=== PATIENT | female | born 2000 | race Caucasian/White ===

== ENCOUNTER 2022-11-11 18:23 | Emergency (ER) | payer OTHER, SELFPAY ==
[2022-11-11 18:47] VITALS: BP 131/87; PULSE 124; RESP 16; TEMP 37.5; O2SAT 100
--- NOTE | 2022-11-11 19:38 | ED.GENADULT ---
HPI - General Adult General Chief complaint: Ear Stated complaint: Ear Pain/Fever Source: patient Mode of arrival: ambulatory Limitations: no limitations History of Present Illness HPI narrative: Patient presents for evaluation of sick symptoms for last 2 days. Symptoms include sore throat, runny nose, left-sided ear pain, fever and mild SOB. No chills, nausea, vomiting, diarrhea or significant cough. No recent sick contacts. She does use an electric cigarette and smokes marijuana. She has had COVID in the past. Related Data Allergies Allergy/AdvReac Type Severity Reaction Status Date / Time No Known Allergies Allergy Unknown Unverified 11/11/22 18:56 Review of Systems Review of Systems: CONSTITUTIONAL: Reports fever. Denies chills. EYES: Denies visual changes, redness, or discharge. ENT: Reports rhinorrhea, sore throat, left-sided otalgia.. CARDIOVASCULAR: Denies chest pain, palpitations, or edema. RESPIRATORY: Denies cough or dyspnea. GASTROINTESTINAL: Denies abdominal pain, nausea, vomiting, or diarrhea. GENITOURINARY: Denies dysuria or hematuria. SKIN: Denies rash or itching. MUSCULOSKELETAL: Denies back pain, joint pain, or myalgia. NEUROLOGIC: Denies headache, numbness, dizziness, or weakness. PSYCHIATRIC: Denies anxiety or depression. PMFSH Past Medical History Medical History (Updated 11/11/22 @ 19:52 by Alvarado Worrell, [employer], ) No pertinent past medical history Surgical History Surgical History No pertinent past surgical history Family History Family History Mother Family history non-contributory Social History Social History (Updated 11/11/22 @ 19:43 by Alvarado Worrell, [facility], ) Smoking status: Current every day smoker Tobacco type: e-cigarettes/vaping Alcohol intake: current Alcohol use details: social Substance use: current Substance use type: marijuana Additional living arrangements comments: Lives with boyfriend Gender identity (if verbalized by the patient): Female Sexual Orientation (if Verbalized by the Patient): Straight or Heterosexual Spiritual care concerns: No Exam Narrative: GENERAL: Well-appearing, well-nourished, and in no acute distress. HEAD: Normocephalic, atraumatic. EYES: PERRLA and EOMI. ENT: Nares clear, no rhinorrhea or epistaxis. Mucous membranes moist. Posterior pharyngeal erythema without exudate. Uvula is midline. Left TM erythema and bulging NECK: Supple. No adenopathy or masses. No carotid bruits or JVD CHEST: Clear to auscultation. No respiratory distress. No wheezes rales or rhonchi HEART: Regular rate and rhythm. No murmur heard. Normal peripheral pulses. ABDOMEN: Soft, nontender, nondistended, normal active bowel sounds. EXTREMITIES: Normal range of motion. No edema. SKIN: Warm, dry, no rash. NEURO: No focal deficits. Alert and oriented x3. PSYCH: Normal mood and affect. Course Course Emergency Course: This is a 22-year-old female who presented for evaluation of sick symptoms. She has evidence of otitis media on exam. Will treat with Augmentin. Her strep and flu were negative here. Increase hydration. [id number] agents for symptom management. Follow up with primary provider. Go to the ER for worsening symptoms. Advised not to smoke. Patient in agreement with plan of care. Level of Care: Express Care Visit Vital Signs Vital signs: Vital Signs Temperature 37.5 C 11/11/22 18:47 Pulse Rate 124 H 11/11/22 18:47 Respiratory Rate 16 11/11/22 18:47 Blood Pressure 131/87 11/11/22 18:47 Pulse Oximetry 100 11/11/22 18:47 Oxygen Delivery Room Air 11/11/22 18:47 Temperature 37.5 C 11/11/22 18:47 Pulse Rate 124 H 11/11/22 18:47 Respiratory Rate 16 11/11/22 18:47 Blood Pressure 131/87 11/11/22 18:47 Pulse Oximetry 100 11/11/22 18:47 Oxygen Delivery Room
== END 2022-11-11 19:56 | disposition home or self-care (01) ==
PROVIDERS: Emergency Provider Nurse Practitioner
DX: H66.92 Otitis media, unspecified, left ear (principal); F17.290 Nicotine dependence, other tobacco product, uncomplicated
CPT/HCPCS: 87081; 87804; 87880; 99203; G0463

== ENCOUNTER 2023-02-23 17:57 | Emergency (ER) | payer OTHER, SELFPAY ==
--- NOTE | ~2023-02-23 | XR_ITS ---
EXAMINATION: XR hand RT min 3V DATE: 02/23/2023 18:19 INDICATION: Right hand pain and swelling TECHNIQUE: Posteroanterior, oblique and lateral views of the right hand were obtained. COMPARISON: None. FINDINGS: Boxer's fracture with old fracture at the distal diaphysis of the right fifth metacarpal. There is 3 mm palmar/radial and 20 degrees palmar/radial angulation. Prominent soft tissue swelling about the ul sabino side of the hand. No other fractures identified. Alignment is otherwise normal. Joint spaces are normal. IMPRESSION: 1. Moderately displaced and angulated boxer's fracture the distal diaphysis of the right fifth metaca rpal. Reviewed, dictated and finalized at location A. IMPRESSION: 1. Moderately displaced and angulated boxer's fracture the distal diaphysis of the right fifth metacarpal.
[2023-02-23 18:04] VITALS: BP 134/77; PULSE 72; RESP 16; TEMP 37.3; O2SAT 100
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
== END 2023-02-23 19:00 | disposition home or self-care (01) ==
PROVIDERS: Emergency Provider Nurse Practitioner Family
DX: S62.306A Unspecified fracture of fifth metacarpal bone, right hand, initial encounter for closed fracture (principal); W22.8XXA Striking against or struck by other objects, initial encounter; F17.290 Nicotine dependence, other tobacco product, uncomplicated
CPT/HCPCS: 29125; 73130; 99214; A4565; G0463

== ENCOUNTER 2023-02-26 02:09 | Day surgery (SDC) | payer OTHER, SELFPAY ==
[2023-02-24 15:27] VITALS: BMI 19.8
--- NOTE | 2023-02-24 15:31 | PC.NURSE ---
Report to the Outpatient Waiting Room, entrance under the green pavilion located off [facility], at time 0915 on date 02/26/23. Planned Procedure Time: 1115. Time changes happen often and if your time is changed the preop area will call you the afternoon before. - You and your visitor will be asked to self-screen and do not enter if you have any COVID symptoms. - A mask is optional within the hospital at this time. Patients may have clear liquids (water, carbonated beverages, clear teas, apple juice) until 3 hours prior to surgery with a maximum of 20 ounces. - No food from midnight until time of surgery Take the following medications with a SIP of water the morning of surgery: N/A DO NOT STOP ANY OF YOUR OTHER PRESCRIPTION MEDICATIONS PRIOR TO SURGERY EXCEPT THE FOLLOWING Medications to discontinue per physician: N/A Date to take last dose: N/A Please no make-up, nail wolof, hairspray, perfume, deodorant, or body powder the day of surgery. No jewelry (including any body piercings) or valuables the day of surgery, leave them at home. Please take a shower or bath the night before, or the morning of, surgery with an antibacterial soap. Wear comfortable, loose fitting clothing. - Jewelry must be removed prior to entering the operating room. Rings and piercings that are not removed may be cut off. - The hospital will not accept responsibility for valuables. - Please leave all valuables, including medications, at home the day of surgery. If you are going home after surgery, a licensed medical van driver must drive you home. - NO public transportation without another adult if you receive anesthesia. - We recommend that an adult stay with you for 24 hours following discharge. - We also recommend that you do not drive, make important decision, drink alcoholic beverages, or take any drugs that were not prescribed by your health care provider for at least 24 hours after your discharge time. Follow any additional instructions given to you from your surgeon. If you or anyone in your household have experienced Covid symptoms in the past week, please notify your surgeon or the nurse liaison at the phone number below for possible testing. Telephone instructions given to SAMUEL MILLER and asked if any additional questions and then verbalized understanding. Patient advised to call surgeon office or pre surgery nurse liaison [phone] if any additional questions.
[2023-02-26] VITALS (8 sets, daily range): BP systolic 110–123; BP diastolic 65–90; PULSE 56–121; RESP 12–21; TEMP 36.6; O2SAT 100
--- NOTE | ~2023-02-26 | XR_ITS ---
. EXAMINATION: XR surgery orthopedic DATE: 02/26/2023 11:09 INDICATION: Right fifth metacarpal fracture. TECHNIQUE: 3 intraoperative spot fluoroscopic views of right hand were obtained. I was not present. F luoroscopy exposure time was 130 seconds. COMPARISON: Right hand radiographs 02/23/2023 FINDINGS: There is an oblique fracture of diaphysis of fifth metacarpal in near-anatomic alignment st atus post internal fixation with an intramedullary pin. IMPRESSION: 1. Oblique fracture of diaphysis of fifth metacarpal in near-anatomic alignment status post internal fixation. Reviewed, dictated and finalized at location A.
--- NOTE | 2023-02-26 07:10 | WPDHPUPDATE1 ---
History and Physical Update Update Date/Time: 02/26/23 07:10 History and Physical has been reviewed, including an updated exam of the patient. There are NO changes in the patient's condition. Risks, benefits, and alternatives have been discussed and questions answered. Patient agrees to proceed with procedure.
[2023-02-26] MEDS: ACETAMINOPHEN 500 MG TABLET 1000 MG PO (09:55)
--- NOTE | 2023-02-26 09:57 | WPDANESEPPF ---
Anes - Initial Pre Proc Eval Procedure: Operation Date: 02/26/23 11:15 Proposed Procedures p Closed Possible Open Reduction Internal Fixation of Right Fifth Metacarpal Fracture - Angelo Tesfaye MD Date/Time: 02/26/23 09:57 Surgeon: Angelo Tesfaye MD Pre Op Diagnosis: right 5th metacarpal fracture Patient Data Age: 22 Gender: F Height: 1.55 m Weight: 47.65 kg Allergies Allergy/AdvReac Type Severity Reaction Status Date / Time No Known Allergies Allergy Unknown Unverified 02/24/23 15:27 Home Medications Medication Instructions Recorded Confirmed Type No Home Medications 02/24/23 02/24/23 History Patient hx anesthesia problems: none Family hx anesthesia problems: none Results Review: All pre-operative results and documents have been reviewed as part of the pre-operative evaluation. [facility] Past Medical History Medical History (Updated 02/24/23 @ 00:00 by Bee Corbett) No pertinent past medical history Surgical History Surgical History No pertinent past surgical history Family History Family History Mother Family history non-contributory Social History Social History (Updated 11/11/22 @ 19:43 by GRADY NorrisP, ) Smoking status: Never smoker Tobacco type: e-cigarettes/vaping Alcohol intake: current Drinks per week: 3 Alcohol use details: social Substance use: current Substance use type: marijuana Living arrangements: with friend(s) Additional living arrangements comments: BOYFRIEND Gender identity (if verbalized by the patient): Female Sexual Orientation (if Verbalized by the Patient): Straight or Heterosexual Spiritual care concerns: No Anes - Eval Final PreProcedure Day of Procedure 02/26/23 09:57 Patient weight: normal Heart: regular rate and rhythm Lungs: clear to auscultation Airway: Mallampati scale class II Neurological: alert and oriented Last oral intake: >/= 8 hours ASA classification: II Emergent: no Anesthetic plan: proceed Anesthesia type and monitoring: general LMA and standard monitoring Results Review: All pre-operative results and documents have been reviewed as part of the pre-operative evaluation. Informed Consent: The patient's anesthetic plan and its attendant risks and benefits were discussed with the patient/family/POA. Questions were solicited and answers provided to the satisfaction of the patient/family/POA.
[2023-02-26] MEDS: LACTATED RINGERS 1,000 ML 30 ML IV CONT (10:02)
--- NOTE | 2023-02-26 10:04 | P.PNAN_ITS ---
Anes - Initial Pre Proc Eval Procedure: Operation Date: 02/26/23 11:15 Proposed Procedures p Closed Possible Open Reduction Internal Fixation of Right Fifth Metacarpal Fracture - Angelo Tesfaye MD Date/Time: 02/26/23 10:04 Surgeon: Angelo Tesfaye MD Pre Op Diagnosis: right 5th metacarpal fracture Patient Data Age: 22 Gender: F Height: 1.55 m Weight: 46.9 kg Last Vital Signs Temp 98 F 02/26/23 09:58 Pulse 74 02/26/23 09:58 Resp 14 02/26/23 09:58 BP 111/90 02/26/23 09:58 Pulse Ox 100 02/26/23 09:58 O2 Del Method Room Air 02/26/23 09:58 Allergies Allergy/AdvReac Type Severity Reaction Status Date / Time No Known Allergies Allergy Unknown Verified 02/26/23 10:03 Home Medications Medication Instructions Recorded Confirmed Type No Home Medications 02/24/23 02/24/23 History Patient hx anesthesia problems: none Family hx anesthesia problems: none Results Review: All pre-operative results and documents have been reviewed as part of the pre- operative evaluation. [facility] Past Medical History Medical History (Updated 02/24/23 @ 00:00 by Bee Corbett) No pertinent past medical history Surgical History Surgical History No pertinent past surgical history Family History Family History Mother Family history non-contributory Social History Social History (Updated 11/11/22 @ 19:43 by FELY Norris, ) Smoking status: Never smoker Tobacco type: e-cigarettes/vaping Alcohol intake: current Drinks per week: 3 Alcohol use details: social Substance use: current Substance use type: marijuana Living arrangements: with friend(s) Additional living arrangements comments: BOYFRIEND Gender identity (if verbalized by the patient): Female Sexual Orientation (if Verbalized by the Patient): Straight or Heterosexual Spiritual care concerns: No Anes - Eval Final PreProcedure Day of Procedure 02/26/23 10:04 Patient weight: normal Heart: regular rate and rhythm Lungs: clear to auscultation Airway: Mallampati scale class II Neurological: alert and oriented Last oral intake: >/= 8 hours ASA classification: II Emergent: no Anesthetic plan: proceed Anesthesia type and monitoring: general LMA and standard monitoring Results Review: All pre-operative results and documents have been reviewed as part of the pre- operative evaluation. Informed Consent: The patient's anesthetic plan and its attendant risks and benefits were discussed with the patient/family/POA. Questions were solicited and answers provided to the satisfaction of the patient/family/POA.
[2023-02-26] MEDS: ceFAZolin 2 GM/D5W 50 ML 2 GM/50 ML BAG IVPB (10:05)
[2023-02-26] MEDS: LIDO 1%/EPINEPHRINE 1:100,000 50 ML VIAL INFILTRATE (10:32)
--- NOTE | 2023-02-26 11:23 | W.PM.PROC2 ---
Procedure Note - Detailed Date of Procedure 02/26/23 Pre-op Diagnosis right 5th metacarpal fracture Post-op Diagnosis Same Procedure Performed Open reduction and internal fixation of displaced right 5th metacarpal shaft fracture with intramedullary C-wire Surgeon Angelo Tesfaye MD [employer] [place] Anesthesia General Indications Angulated offset and rotated shaft fracture Description of Procedure The fracture area was marked on the patient's hand in preop with her consent. She was then taken to the operating room where she was placed supine on the operating table. She was given general anesthesia. Extremity is prepped and draped in the usual fashion. The site for access and pin placement was identified with the C-arm. The area was locally infiltrated with 1% lidocaine with epinephrine. A 1.5 cm incision was made. The periosteum was stripped away with a small area near the base of the 5th metacarpal. A 0.062 in C-wire was used to make the fenestration in the bone dorsal cortex. A custom bent 0.045 in C-wire was inserted from that point and advanced distally using the right and left rotation of the pin drill. The fracture was fairly easily reduced. Rotation was examined at the finger tips. The pin was advanced further into the head of the 5th metacarpal. Reviewing several images we felt that satisfactory reduction and fixation was achieved. The pin was sharply bent at the base of the metacarpal and rotated against the bone. A 3-0 Vicryl suture was passed through abductor fascia and around the bent pin to keep it from rotating. The site was irrigated and the skin closed with a running 5 0 nylon. A soft bandage with Coban wrap was applied. She is discharged home with instructions in wound care and follow-up. She has a prescription for hydrocodone 5/325 be used every 4-6 hours as needed for pain 7.. She was given IV Ancef preop Estimated Blood Loss 2 Drains No Packing No Pathology None sent Complications No immediate complications Condition Stable Disposition PACU
[2023-02-26] MEDS: fentaNYL CITRATE INJ (*CRX) 100 MCG/2 ML VIAL 25 MCG IV PUSH ×3 (11:37→12:01)
== END 2023-02-26 12:53 | disposition home or self-care (01) ==
PROVIDERS: Visit Provider Plastic Surgery
PROC: (CPT 26615; principal; 2023-02-26 11:15)
DX: S62.326A Displaced fracture of shaft of fifth metacarpal bone, right hand, initial encounter for closed fracture (principal); T14.90XA Injury, unspecified, initial encounter
CPT/HCPCS: 26615; 99199; A9270; C1713; J0690; J1100; J2250; J2405; J2704; J3010; J7120

== ENCOUNTER 2023-04-15 06:35 | Day surgery (SDC) | payer OTHER, SELFPAY ==
--- NOTE | 2023-04-07 09:11 | PC.NURSE ---
Report to the Outpatient Waiting Room, entrance under the green pavilion located off [facility], at time _0630_ on date _04/15/23. Planned Procedure Time: __0830_. Time changes happen often and if your time is changed the preop area will call you the afternoon before. - You and your visitor will be asked to self-screen and do not enter if you have any COVID symptoms. - A mask is optional within the hospital at this time. Patients may have clear liquids (water, carbonated beverages, clear teas, apple juice) until 3 hours prior to surgery with a maximum of 20 ounces. - No food from midnight until time of surgery - Infants may have breast milk until 4 hours before surgery, infant formula 6 hours prior to surgery. - Children will be allowed to drink immediately following surgery. If applicable, please bring a bottle or sippy cup to assist with drinking. Juice, water, soda, and popsicles are readily available. For infants on formula, please bring formula the day of surgery. Pacifiers are allowed. Take the following medications with a SIP of water the morning of surgery: NONE DO NOT STOP ANY OF YOUR OTHER PRESCRIPTION MEDICATIONS PRIOR TO SURGERY ?EXCEPT THE FOLLOWING Medications to discontinue per physician NONE Date to take last dose Please no make-up, nail lao, hairspray, perfume, deodorant, or body powder the day of surgery. No jewelry (including any body piercings) or valuables the day of surgery, leave them at home. Please take a shower or bath the night before, or the morning of, surgery with an antibacterial soap. Wear comfortable, loose fitting clothing. Children are encouraged to wear pajamas. - Jewelry must be removed prior to entering the operating room. Rings and piercings that are not removed may be cut off. - The hospital will not accept responsibility for valuables. - Please leave all valuables, including medications, at home the day of surgery. If you are going home after surgery, a licensed parts delivery driver must drive you home. - NO public transportation without another adult if you receive anesthesia. - We recommend that an adult stay with you for 24 hours following discharge. - We also recommend that you do not drive, make important decision, drink alcoholic beverages, or take any drugs that were not prescribed by your health care provider for at least 24 hours after your discharge time. For Pediatric surgeries, we recommend two adults accompany the child home. Follow any additional instructions given to you from your surgeon. If you or anyone in your household have experienced Covid symptoms in the past week, please notify your surgeon or the nurse liaison at the phone number below for possible testing. Telephone instructions given to _PATIENT and asked if any additional questions and then verbalized understanding. Patient advised to call surgeon office or pre surgery nurse liaison [phone] if any additional questions.
--- NOTE | 2023-04-13 13:33 | WPDANESEPPF ---
Anes - Initial Pre Proc Eval Procedure: Operation Date: 04/15/23 08:30 Proposed Procedures p Removal C-Wire from Right Fifth Metacarpal - Angelo Tesfaye MD Date/Time: 04/13/23 13:33 Surgeon: Angelo Tesfaye MD Pre Op Diagnosis: R 5th metacapal fx sp orig Patient Data Age: 22 Gender: F Height: 1.55 m Weight: 48 kg Allergies Allergy/AdvReac Type Severity Reaction Status Date / Time No Known Allergies Allergy Unknown Verified 04/07/23 09:06 Home Medications Medication Instructions Recorded Confirmed Type No Home Medications 04/07/23 04/07/23 History Results Review: All pre-operative results and documents have been reviewed as part of the pre-operative evaluation. [facility] Past Medical History Medical History (Updated 02/24/23 @ 00:00 by Bee Corbett) No pertinent past medical history Surgical History Surgical History No pertinent past surgical history Family History Family History Mother Family history non-contributory Social History Social History (Updated 11/11/22 @ 19:43 by FELY Norris, ) Smoking status: Never smoker Tobacco type: e-cigarettes/vaping Additional smoking assessment comments: 2 YEARS Alcohol intake: current Drinks per week: 2 Alcohol use details: social Substance use: current Substance use type: marijuana Other substance usage details: DAILY Living arrangements: with roommate(s) Additional living arrangements comments: BOYFRIEND Gender identity (if verbalized by the patient): Female Sexual Orientation (if Verbalized by the Patient): Straight or Heterosexual Spiritual care concerns: No Anes - Eval Final PreProcedure Day of Procedure 04/13/23 13:33 Patient weight: normal Heart: regular rate and rhythm Lungs: clear to auscultation Airway: Mallampati scale class II Neurological: alert and oriented Last oral intake: >/= 8 hours ASA classification: II Emergent: no Anesthetic plan: proceed Anesthesia type and monitoring: general LMA and standard monitoring Results Review: All pre-operative results and documents have been reviewed as part of the pre-operative evaluation. Informed Consent: The patient's anesthetic plan and its attendant risks and benefits were discussed with the patient/family/POA. Questions were solicited and answers provided to the satisfaction of the patient/family/POA.
--- NOTE | ~2023-04-15 | XR_ITS ---
EXAMINATION: XR surgery orthopedic DATE: 04/15/2023 08:34 INDICATION: C-wire fixation removal from the right fifth metacarpal TECHNIQUE: A single dorsal palmar fluoroscopic image of the right fifth metacarpal was obtained krystle ralph procedure performed by Dr. Tesfaye. Radiologist was not present for the imaging or procedure. The [place] unt of fluoroscopy time used during this procedure was 0.1 minutes. COMPARISON: 02/26/2023 FINDINGS: Again seen is a fixation wire extending from proximal to distal through the fifth metacarpal spanning a healing nondisplaced distal metadiaphyseal fracture. Bridging callus formation is seen about both sides of the fracture. There is still some discernible lucency along the fracture plane. Normal joint space at the fifth metacarpophalangeal joint. IMPRESSION: 1. Wire fixation of a healing fifth metacarpal fracture which remains in near-anatomic alignment. Reviewed, dictated and finalized at location B. IMPRESSION: 1. Wire fixation of a healing fifth metacarpal fracture which remains in near-a natomic alignment.
[2023-04-15 06:49] VITALS: BP 121/78; PULSE 64; RESP 16; TEMP 36.6; O2SAT 100
[2023-04-15] MEDS: ACETAMINOPHEN 500 MG TABLET 1000 MG PO (07:11)
--- NOTE | 2023-04-15 07:14 | WPDHPUPDATE1 ---
History and Physical Update Update Date/Time: 04/15/23 07:14 History and Physical has been reviewed, including an updated exam of the patient. There are NO changes in the patient's condition. Risks, benefits, and alternatives have been discussed and questions answered. Patient agrees to proceed with procedure.
[2023-04-15] MEDS: LACTATED RINGERS 1,000 ML 30 ML IV CONT (07:18)
--- NOTE | 2023-04-15 07:57 | WPDANESEPPF ---
Anes - Initial Pre Proc Eval Procedure: Operation Date: 04/15/23 08:30 Proposed Procedures p Removal C-Wire from Right Fifth Metacarpal - Angelo Tesfaye MD Date/Time: 04/15/23 07:57 Surgeon: Angelo Tesfaye MD Pre Op Diagnosis: R 5th metacapal fx sp orig Patient Data Age: 22 Gender: F Height: 1.55 m Weight: 47.5 kg Last Vital Signs Temp 36.6 C 04/15/23 06:49 Pulse 64 04/15/23 06:49 Resp 16 04/15/23 06:49 BP 121/78 04/15/23 06:49 Pulse Ox 100 04/15/23 06:49 O2 Del Method Room Air 04/15/23 06:49 Allergies Allergy/AdvReac Type Severity Reaction Status Date / Time No Known Allergies Allergy Unknown Verified 04/15/23 07:08 Home Medications Medication Instructions Recorded Confirmed Type No Home Medications 04/07/23 04/15/23 History Patient hx anesthesia problems: none Family hx anesthesia problems: none Results Review: All pre-operative results and documents have been reviewed as part of the pre-operative evaluation. [facility] Past Medical History Medical History (Updated 02/24/23 @ 00:00 by Bee Corbett) No pertinent past medical history Surgical History Surgical History No pertinent past surgical history Family History Family History Mother Family history non-contributory Social History Social History (Updated 11/11/22 @ 19:43 by FELY Norris, ) Smoking status: Never smoker Tobacco type: e-cigarettes/vaping Additional smoking assessment comments: 2 YEARS Alcohol intake: current Drinks per week: 2 Alcohol use details: social Substance use: current Substance use type: marijuana Other substance usage details: DAILY Living arrangements: with roommate(s) Additional living arrangements comments: BOYFRIEND Gender identity (if verbalized by the patient): Female Sexual Orientation (if Verbalized by the Patient): Straight or Heterosexual Spiritual care concerns: No Anes - Eval Final PreProcedure Day of Procedure 04/15/23 07:57 Patient weight: normal Heart: regular rate and rhythm Lungs: clear to auscultation and normal air movement Airway: Mallampati scale class II Neurological: alert and oriented Last oral intake: >/= 8 hours ASA classification: II Emergent: no Anesthetic plan: proceed Anesthesia type and monitoring: general GIVS and standard monitoring Results Review: All pre-operative results and documents have been reviewed as part of the pre-operative evaluation. Informed Consent: The patient's anesthetic plan and its attendant risks and benefits were discussed with the patient/family/POA. Questions were solicited and answers provided to the satisfaction of the patient/family/POA.
[2023-04-15] MEDS: LIDO 1%/EPINEPHRINE 1:100,000 50 ML VIAL INFILTRATE (08:34)
[2023-04-15 08:45] VITALS: BP 100/80; PULSE 48; RESP 14; O2SAT 98
--- NOTE | 2023-04-15 09:02 | W.PM.PROC2 ---
Procedure Note - Detailed Date of Procedure 04/15/23 Pre-op Diagnosis R 5th metacapal fx sp orig Post-op Diagnosis Other (Status post closed reduction and internal fixation of right 5th metacarpal fracture) Procedure Performed Removal of C-wire fixation device from the right 5th metacarpal Surgeon Angelo Tesfaye MD Anesthesia MAC Description of Procedure The previously operated pin site was marked on the patient's hand with her consent in the holding area. She was taken to the operating room where she was placed supine on the operating table. The extremity was prepped and draped in usual fashion. She was given IV sedation. Time-out was held and confirmed. The site was locally infiltrated with 1% lidocaine with epinephrine. C-arm images confirmed appropriate access site. The fracture was noted to be healing. The tourniquet was inflated to 250 mmHg. The incision was made to include excision of the existing scar. Sharp and blunt dissection revealed the proximal end of the pin. The extensor tendon to the 5th finger were identified and released from local scarring. The pin was removed retrograde with the use of a large needle mata. The digit was noted to move freely with passive motion. The wound was closed with intradermal 4-0 Vicryl suture heart and glue. A small bandage was applied the tourniquet was released. She is discharged with instructions in wound care and follow-up and has a prescription for hydrocodone 5/325 number 3. Estimated Blood Loss 0 Drains No Packing No Pathology None sent Complications No immediate complications Condition Stable Disposition Same day
[2023-04-15 09:15] VITALS: BP 107/66; PULSE 54; RESP 16; O2SAT 100
[2023-04-15 09:45] VITALS: BP 113/74; PULSE 52; RESP 16
== END 2023-04-15 10:17 | disposition home or self-care (01) ==
PROVIDERS: Visit Provider Plastic Surgery
PROC: (CPT 20694; principal; 2023-04-15 08:30)
DX: Z47.2 Encounter for removal of internal fixation device (principal); S62.326D Displaced fracture of shaft of fifth metacarpal bone, right hand, subsequent encounter for fracture with routine healing; W22.8XXD Striking against or struck by other objects, subsequent encounter; F12.90 Cannabis use, unspecified, uncomplicated; F17.290 Nicotine dependence, other tobacco product, uncomplicated
CPT/HCPCS: 20680; 99199; A9270; J2250; J2405; J2704; J3010; J7120

== ENCOUNTER 2023-06-14 16:02 | Emergency (ER) | payer OTHER, SELFPAY ==
[2023-06-14 16:07] VITALS: BP 127/84; PULSE 101; RESP 18; TEMP 37.2; O2SAT 100
--- NOTE | 2023-06-14 16:18 | ED.URI ---
HPI - URI/Sore Throat General Chief Complaint: Upper Respiratory Infection Stated Complaint: Shortness of Breath/Fever History of Present Illness HPI Narrative: patient presents with chest congestion , cough, nasal congestion. an runny nose no shortness of breath and no chest pain no fever. negative covid test at home yesterday states her symptoms started 2 days ago Related Data Home Medications Medication Instructions Recorded Confirmed norethindrone 1 mg-ethinyl 1 tablet PO DAILY 06/14/23 06/14/23 estradiol 10 mcg (24)-iron 10 mcg(2) tablet (Lo Loestrin Fe) Allergies Allergy/AdvReac Type Severity Reaction Status Date / Time No Known Allergies Allergy Unknown Verified 04/15/23 07:08 Review of Systems Review of Systems: CONSTITUTIONAL: Denies chills, or sweats. Reports fever and generalized body aches EYES: Denies visual changes, redness, or discharge. ENT: Denies otalgia. Reports nasal congestion runny nose and sore throat CARDIOVASCULAR: Denies chest pain, palpitations, or edema. RESPIRATORY: Denies dyspnea. Reports occasional cough GASTROINTESTINAL: Denies abdominal pain, nausea, vomiting, or diarrhea. GENITOURINARY: Denies dysuria or hematuria. SKIN: Denies rash or itching. MUSCULOSKELETAL: Denies back pain, joint pain, or myalgia. Reports generalized body aches NEUROLOGIC: Denies headache, numbness, or weakness. PSYCHIATRIC: Denies anxiety or depression. [facility] Past Medical History Medical History (Updated 06/14/23 @ 16:24 by FELY Leal) No pertinent past medical history Surgical History Surgical History No pertinent past surgical history Family History Family History Mother Family history non-contributory Social History Social History (Updated 11/11/22 @ 19:43 by FELY Norris, ) Smoking status: Never smoker Tobacco type: e-cigarettes/vaping Additional smoking assessment comments: 2 YEARS Alcohol intake: current Drinks per week: 2 Alcohol use details: social Substance use: current Substance use type: marijuana Other substance usage details: DAILY Living arrangements: with roommate(s) Additional living arrangements comments: BOYFRIEND Gender identity (if verbalized by the patient): Female Sexual Orientation (if Verbalized by the Patient): Straight or Heterosexual Spiritual care concerns: No Comments At time of signature, agree with nursing past medical, surgical, social and family history. There is no relevant family history pertinent to the presenting complaint Exam Narrative: The patient is a well-developed, well-nourished in no acute distress. SKIN: Skin is warm and dry without erythema, swelling or exudate. There is good turgor. No tenting. HEAD: Atraumatic. Normocephalic. No temporal or scalp tenderness. EYES: Moist and bright. Sclera and conjunctivae normal. No discharge. PERRLA. Extraocular motions intact. Gross visual acuity intact. EARS: Pinna is normal shape and contour. Clear external auditory canals. TM pearly pina with good cone of light, no erythema or suppuration. Bilateral cerumen noted no gross hearing deficit. NOSE: pink, moist mucosa with good air movement. Clear rhinorrhea without nasal flaring. Septum midline. Mouth: moist mucous membranes. THROAT; mild erythema noted to posterior oropharynx with moderate postnasal drainage. Without exudate or ulceration.. Uvula midline. Normal movement of soft palate. NECK: Supple and nontender with full range of motion without discomfort. No meningeal signs. LUNGS: Equal and bilateral breath sounds without wheezes, rales or rhonchi. CHEST: The chest wall is without retractions or use of accessory muscles. HEART: Has a regular rate and rhythm without murmur, gallops, click or rub. ABDOMEN: Soft, nontender with positive active bowel sounds. No reboun
== END 2023-06-14 16:50 | disposition home or self-care (01) ==
PROVIDERS: Emergency Provider Nurse Practitioner Family
DX: J06.9 Acute upper respiratory infection, unspecified (principal); Z20.822 Contact with and (suspected) exposure to COVID-19
CPT/HCPCS: 87426; 99213; C9803; G0463

== ENCOUNTER 2025-08-12 14:27 | Emergency (ER) | payer OTHER, SELFPAY ==
--- OUTSIDE RECORDS SUMMARY | 2025-08-12 14:29 | XMS_ITS | Clinical Summary ---
Author Organization [facility] Address [address] [address] Phone Care Team Providers Care Heel Wheeler Name Role Phone Unavailable Primary Care Provider Unavailabl e Allergies No known active allergies Medications omeprazole (PRILOSEC) 40 MG CAPSULE DELAYED RELEASE Take 40 mg by mouth daily. Reported on 01/21/2017 06/02/2016 Active other Active Family History Relation Name Status Comments Father Alive Mother Alive Social History Tobacco Use Types Packs/Day Years Used Date Smoking Tobacco: Never Alcohol Use Standard Drinks/Week Comments No 0 (1 standard drink = 0.6 oz pur e alcohol) Comments No Sex and Gender Information Value Date Recorded Sex Assigned at Not on file Legal Sex Female 9:02 PM CDT Gender Identity Not on file Sexual Orientation Not on file Last Filed Vital Signs Vital Sign Reading Time Taken Comments Blood Pressure 110/80 01/21/2017 9:16 AM CDT Pulse 75 01/21/2017 9:16 AM CDT Temperature 36.1 C (97 F) 07/31/2016 10:20 AM CDT Respiratory Rate 18 01/21/2017 9:16 AM CDT Oxygen Saturation 89% 01/21/2017 9:16 AM CDT Inhaled Oxygen Concentration - - Weight 56.2 kg (124 lb) 01/21/2017 9:16 AM CDT Height 154.9 cm (5' 1) 01/21/2017 9:16 AM CDT Body Mass Index 23.43 01/21/2017 9:16 AM CDT Plan of Treatment Health Maintenance Due Date Last Done Comments Hepatitis C Virus (HCV) Screening 2000 TdaP Immunization 2000 Human Papillomavirus (HPV) Immunization (1 - 3-dose series) 2015 Hepatitis B Immunization (1 of 3 - 19+ 3-dose series) 2019 Influenza Immunization (#1) 2025 SARS-COV-2 Immunization (1 - 2023- season) 2025 Respiratory Syncytial Virus (RSV) Immunization (Adult) (1 - 1-dose 75+ series) 2075 Meningococcal Immunization (ACWY) Aged Out No longer eligible based on patient's age to complete this topic Pneumococcal Immunization Combined Aged Out No longer eligible based on patient's age to complete this topic Rotavirus Immunization Aged Out No lo nger eligible based on patient's age to complete this topic
--- OUTSIDE RECORDS SUMMARY | 2025-08-12 14:29 | XMS_ITS | Clinical Summary ---
Author Organization [facility] Medical Office Building B Address [address] [place] [address] Care Team Providers Care Furnace Loader Name Role Phone Yaron Trujillo MD Primary Care Provider Allergies No known active allergies Medications rizatriptan GLOBAL UPSTREAM MARKETING MANAGER (Maxalt-GLOBAL UPSTREAM MARKETING MANAGER) 10 mg disintegrating tabletIndications: Migraine without aura and without status migrainosus, not intractable Take 1 tablet (10 mg total) by mouth once as needed for migraine Take at onset of headache, if no improvement in 2 hours may take a second tablet, not to exceed 2 tablets in 24 hours 12 tablet 2 05/09/20 25 Active ondansetron ODT (ZOFRAN-ODT) 4 mg disintegrating tabletIndications: Migraine without aura and without status migrainosus, not intractable Take 1 tablet (4 mg total) by mouth every 8 (eight) hours as needed for nausea or vomiting 21 tablet 05/09/20 25 Active Active Problems Problem Noted Date Diagnosed Date Vaping nicotine dependence, non-tobacco product 05/11/2025 Assessment & Plan (05/11/2025 8:48 PM CDT): Nicotine dependence (vaping) Vaping for over a year with a desire to quit. Discussed potential long-term lung issues associated with vaping. - Encourage cessation of vaping. Preventative health care 05/09/2025 Assessment & Plan (05/11/2025 8:48 PM CDT): - New or chronic worsening conditions: painful menstrual cramps, vitamin D deficiency - Mental health: no significant psychiatric/mental health conditions affecting her day to day functioning, remote hx of anxiety/depression - Dental health: Recommend regular dental care and cleaning. Discussed importance of regular tooth brushing, flossing, and dental visits. - Nutrition: Recommend moderation in sodium/caffeine intake, saturated fat and cholesterol, caloric balance, sufficient intake of fresh fruits, vegetables - Exercise: Recommend to exercise at least 30 minutes moderate to vigorous exercise most days of the week. (minimum 150 minutes weekly) - Immunizations: Age and sex appropriate immunizations reviewed and offered - Cervical Cancer screening: Recommended - Breast Cancer screening: not indicated - Colon cancer screening: not indicated - Lung cancer screening: not indicated - Bone desnity/osteoporosis screening:not indicated - control: none Orders: Comprehensive metabolic panel; Future Lipid panel; Future Hemoglobin A1c; Future Thyroid Function [place]; Future CBC without differential; Future Menstrual cramps 05/09/2025 Assessment & Plan (05/11/2025 8:48 PM CDT): Chronic. Recurring condition Severe dysmenorrhea with pain primarily on the first day of menstruation, leading to emergency department visits. Pain is not consistent with endometriosis or PCOS. - Continue with scheduled OBGYN appointment in November for further evaluation. - chronic, since grade 8 per patient - has had US pelvix x2 thus far - she does not desire to be on oral control agents History of depression 05/09/2025 Assessment & Plan (05/11/2025 8:48 PM CDT): Migraine without aura and wi thout status migrainosus, not intractable 02/13/2021 Assessment & Plan (05/11/2025 8:48 PM CDT): Migraine headaches occur approximately once a month, described as strong and debilitating, accompanied by nausea. - Prescribe rizatriptan (Maxalt) for migraine . - Prescribe ondansetron (Zofran) for nausea associated with migraines. Orders: rizatriptan GLOBAL UPSTREAM MARKETING MANAGER (Maxalt-GLOBAL UPSTREAM MARKETING MANAGER) 10 mg disintegrating tablet; Take 1 tablet (10 mg total) by mouth once as needed for migraine Take at onset of headache, if no improvement in 2 hours may take a second tablet, not to exceed 2 tablets in 24 hours ondansetron ODT (ZOFRAN-ODT) 4 mg disintegrating tablet; Take 1 tablet (4 mg total) by mouth every 8 (eight) hours as needed for nausea or vomiting Assessment & Plan (02/13/2021 1:01 PM CDT): Condition is worsening Ibuprofen discussed proper use of a triptan-taking within 30min of onset of headache, may repeat in 2 hours if headache not improved, not to exceed 2 in 24 hours; may use zofran as needed for nausea; discussed keeping a headache diary; discussed avoiding all caffeine, no wine, no soda, tea, coffee, chocolate, no sharp cheeses, no processed meats, no hot dogs, no MSG as found in [employer] food, no more than 1/2 banana a day, no artificial sweeteners, fresh bread (less than 24 hours old); drink lots of water. Vitamin D deficiency 10/21/2019 Assessment & Plan (05/11/2025 8:48 PM CDT): Chronic condition, worse Potential recurrence of vitamin D deficiency due to limited sun exposure, especially in winter months. - Order vitamin D level to assess current status. --> results as shown below - recommend initiation of OTC vitamin D3 4000 international units or higher daily Orders: Vitamin D 25 hydroxy; Future Assessment & Plan (03/13/2020 2:20 PM CDT): Discussed/ordered labs, Condition is stable, encouraged healthy, low carbohydrate lifestyle and at least 150min/week of exercise, continue on Patient is taking vitamin D3 2000iu supplement daily. She is taking otc vit d3 Pt to have repeat vit d level drawn Assessment & Plan (12/09/2019 1:41 PM SENIOR JAVA J2EE DEVELOPER): Discussed/ordered labs, Condition is stable, encouraged healthy, low carbohydrate lifestyle and at least 150min/week of exercise, continue on Patient is taking vitamin D supplement daily. Anxiety 08/11/2019 Assessment & Plan (05/11/2025 8:48 PM CDT): Anxiety is mild and does not significantly impact daily functioning. Previous medication in [id number] was not well-tolerated. Assessment & Plan (03/13/2020 2:17 PM CDT): Discussed/ordered labs, Condition is worsening, encouraged healthy, low carbohydrate lifestyle and at least 150min/week of exercise, she was on lexapro 10mg daily and buspirone 10mg as needed for anxiety. Patient felt the dose was working well for her. She had only needed the buspirone one time. She stopped taking the lexapro and buspirone for 2-3 mo. She just forgot to take it. She is waking up anxious and feels anxious throughout the day for no reason. She would be ok w going back on the lexapro. We will have pt start back on lexapro 10mg daily and Please consider the buspirone as a rescue only medication. If needing it more than 2 x day, please contact office. Patient reiterated no suicidal thoughts at this time; take medication as directed; contact 911 and go to the ER if becomes suicidal; discussed side effects of medication with patient; encouraged healthy diet and exericise; encouraged patient to see a counselor Assessment & Plan (12/09/2019 1:39 PM SENIOR JAVA J2EE DEVELOPER): Discussed/ordered labs, Condition is improving, encouraged healthy, low carbohydrate lifestyle and at least 150min/week of exercise, continue on lexapro 10mg daily and buspirone 10mg as needed for anxiety. Patient feels much better and feels the dose is working well for her. She has only needed the buspirone one time. Assessment & Plan (10/21/2019 10:28 AM SENIOR JAVA J2EE DEVELOPER): Patient reiterated no suicidal thoughts at this time; take medication as directed; contact 911 and go to the ER if becomes suicidal; discussed side effects of medication with patient; encouraged healthy diet and exericise; encouraged patient to see a counselor Watch videos on biofeedback and ask counselor to work on biofeedback with you. At last office visit, we started patient on lexapro 10mg daily and buspar 10mg as needed. Pt is here for her 1 mo follow up She feels the meds are helping. She only used the buspar one day since being here. Pt did not see counselor or watch the biofeedback videos. Please try to do that. Refills given. Assessment & Plan (08/11/2019 10:53 AM CDT): Patient reiterated no suicidal thoughts at this time; take medication as directed; contact 911 and go to the ER if becomes suicidal; discussed side effects of medication with patient; encouraged healthy diet and exericise; encouraged patient to see a counselor Watch videos on biofeedback and ask counselor to work on biofeedback with you. We will start you on lexapro 10mg daily and buspar 10mg as needed. We will see you back in 1 mo, sooner if needed Resolved Problems Problem Noted Date Diagnosed Date Resolved Date Moderate episode of recurren t major depressive disorder 08/11/2019 02/13/2021 Assessment & Plan (03/13/2020 2:16 PM CDT): Discussed/ordered labs, Condition is worsening, encouraged healthy, low carbohydrate lifestyle and at least 150min/week of exercise, she was on lexapro 10mg daily and buspirone 10mg as needed for anxiety. Patient felt the dose was working well for her. She had only needed the buspirone one time. She stopped taking the lexapro and buspirone for 2-3 mo. She just forgot to take it. She is waking up anxious and feels anxious throughout the day for no reason. She would be ok w going back on the lexapro. We will have pt start back on lexapro 10mg daily and Please consider the buspirone as a rescue only medication. If needing it more than 2 x day, please contact office. Patient reiterated no suicidal thoughts at this time; take medication as directed; contact 911 and go to the ER if becomes suicidal; discussed side effects of medication with patient; encouraged healthy diet and exericise; encouraged patient to see a counselor Assessment & Plan (12/09/2019 1:52 PM SENIOR JAVA J2EE DEVELOPER): Discussed/ordered labs, Condition is improving, encouraged healthy, low carbohydrate lifestyle and at least 150min/week of exercise, continue on lexapro 10mg daily and buspirone 10mg as needed for anxiety. Patient feels much better and feels the dose is working well for her. She has only needed the buspirone one time. Patient reiterated no suicidal thoughts at this time; take medication as directed; contact 911 and go to the ER if becomes suicidal; discussed side effects of medication with patient; encouraged healthy diet and exericise; encouraged patient to see a counselor Assessment & Plan (10/21/2019 10:28 AM SENIOR JAVA J2EE DEVELOPER): Patient reiterated no suicidal thoughts at this time; take medication as directed; contact 911 and go to the ER if becomes suicidal; discussed side effects of medication with patient; encouraged healthy diet and exericise; encouraged patient to see a counselor Watch videos on biofeedback and ask counselor to work on biofeedback with you. At last office visit, we started patient on lexapro 10mg daily and buspar 10mg as needed. Pt is here for her 1 mo follow up She feels the meds are helping. She only used the buspar one day since being here. Pt did not see counselor or watch the biofeedback videos. Please try to do that. Refills given. Encounters Date Type Department Care Team Description 07/06/2025 5:39 AM CDT - 07/06/2025 9:29 AM CDT Emergency [facility] Emergency Department [address] [place] [address] Pratik Huerta MD Abdominal pain (Primary Dx) Discharge Disposition: Discharge to home or self care from Last 3 Months Immunizations Immunization Administration Dates Next Due DTaP 12/31/2001, 2,03/16/2001,03/16,2000,2000,2000 ,2000 DTaP 5 Pertussis 05/08/2006, 2,12/31/2001,03/16,03/16/2001,2000,2000 ,2000,2000 HPV, Unspecified 11/16/2012,08/05/2012,08/06/201 2 Hep A, Pediatric 09/01/2005,09/01/2005 Hep A, Unspecified 05/08/2006,09/01/2005, 005 Hep B / HiB 03/16/2001,03/16/2001 Hep B, Adolescent or Pediatric 0,2000,2000,08/31 Hep B, Unspecified 03/16/2001, 1,2000,10/01,2000,2000 HiB 12/31/2001, 1,03/16/2001,12/29,2000 IPV 05/08/2006, 2,2000,11/02 Influenza, Quadrivalent, Flori l Culture-based MDCK, Preservative Free, Antibiotic Free, Intramuscular 07/25/2019,07/25/2019 Influenza, Quadrivalent, Spl it, Preservative Free, Intramuscular 07/12/2018(Deferred: Patient decision) Influenza, Trivalent, Preser vative Free, Intramuscular 02/14/2014,02/14/2014 Influenza, Unspecified 05/09/2025(Deferr ed: Patient Refused),10/12/2024(Deferred: Patient Refused),10/12/2023(Deferred: Patient Refused),10/12/2020(Deferred: Patient Refused),10/12/2019(Deferred: Patient Refused),10/12/2019(Deferred: Other),10/12/2018(Deferred: Other),07/14/2018(Deferred: Patient Refused),07/17/2014,07/17/2014, 012,06/28/2012,07/17/2010,07/17/2010,1 10/13/2005,08/13/2006,08/30/2004,2003,09/15/2003,09/15/2003,08/02/2003, 08/02/2003 MMR 09/01/2005,09/15/2001 Meningococcal ACWY, Unspecified 05/03/2018,05/12 Meningococcal B, OMV (Bexsero) 05/03/2018,2017 Meningococcal Conjugate (Menveo) 05/12/2017,080 10/2016 Meningococcal Polysaccharide (Menomune) 05/17/2012 Pneumococcal Conjugate 7-Valent 03/16/20,03/16/2001,2000,12/29,2000,2000 Pneumococcal Conjugate, Unspecified 03/16/2001,0 2000,2000 Tdap 05/13/2011 Varicella 03/24/2008,09/16/2001 Surgical History Surgery Date Site/Laterality Comments WISDOM TOOTH EXTRACTION 10/12/2017 - 10/11/2018 TONSILLECTOMY/ADENOIDECTOMY 10/12/2015 - 10/11/2016 Medical History Medical History Date Comments Depression Anxiety Moderate episode of recurrent major depressive d isorder ([facility]) 08/11/2019 Anxiety 08/11/2019 Family History Medical History Relation Name Comments No Known Problems Brother No Known Problems Father Anemia Mother Family history of anemia - (Added by TW Conv) Anxiety disorder Mother Anxiety - ( Added by TW Conv) Relation Name Status Comments Brother Alive Father Alive Mother Alive Social History Tobacco Use Types Packs/Day Years Used Date Smoking Tobacco: Every Day Vaping Smokeless Tobacco: Never Tobacco Cessation:Ready to Q uit: Not Asked; Counseling Given: Not Answered Comments:No Vaping AUDIT-C Answer Date Recorded Q1: How often do you have a drink containing alc ohol? Monthly or less 02/13/2021 Average Number of Drinks Not on file 021 Frequency of Binge Drinking Not on file 02/2021 PHQ-2 Answer Date Recorded PHQ-2 Total Score (If total score is 3 or more points, staff should administer the PHQ-9) 0 05/26/2025 Personal Safety Answer Date Recorded Have you ever been in or are you currently in a harmful physical or emotional relationship or is someone making you feel afraid or unsafe? Denies 07/06/2025 Comments No Sex and Gender Information Value Date Recorded Sex Assigned at Not on file Legal Sex Female 7:10 AM SENIOR JAVA J2EE DEVELOPER Gender Identity Not on file Sexual Orientation Not on file Obstetrics History Last Filed Vital Signs Vital Sign Reading Time Taken Comments Blood Pressure 145/114 07/06/2025 5:53 AM CDT Pulse 78 07/06/2025 6:01 AM CDT Temperature 36.2 C (97.2 F) 07/06/2025 5:49 AM CDT Respiratory Rate 20 07/06/2025 5:49 AM CDT Oxygen Saturation 98% 07/06/2025 5:49 AM CDT Inhaled Oxygen Concentration - - Weight 49.3 kg (108 lb 12.1 oz) 07/06/2025 6:02 AM CDT Height 154.9 cm (5' 1) 05/09/2025 10:5 9 AM CDT Body Mass Index 20.55 05/09/2025 10:59 AM CDT Plan of Treatment Health Maintenance Due Date Last Done Comments Cervical Cancer Screening 2000 Chlamydia and Gonorrhea (GC/ CT) Screening 2000 Pneumococcal vaccine <65 (1 of 1 - PPSV23, PCV20, or PCV21) 2006 03/16/2001, 03/16/2001, 03/16/2001, Additional history exists Varicella Vaccines (2 of 2 - 2-dose childhood series) 06/16/2008 03/24/2008, 09/16/2001 DTaP/Tdap/Td Vaccine (7 - Td or Tdap) 05/13/2021 05/13/2011, 05/08/2006, 12/31/2001, Additional history exists Influenza Vaccine (#1) 2025 9, 07/25/2019, 07/17/2014, Additional history exists Depression Screening 05/09/2026 05/09/2025, 02/13/2021, 01/16/2021, Additional history exists Regular Well Visit/Exam 18-64 05/09/2026 05/09/2025 Hepatitis B Screening Completed 03/16/2001 , 03/16/2001, 03/16/2001, Additional history exists HPV Vaccines Completed 11/16/2012, 07/13, 05/17/2012 Hepatitis C Screening Completed 01/17/2021 Procedures Procedure Name Priority Date/Time Associated Diagnosis Comments CT ABDOMEN PELVIS W CONTRAST ED 07/06/2025 8:40 AM CDT US PELVIS W ENDOVAGINAL ED 07/06/2025 8:00 AM CDT POCT HCG, URINE Routine 07/06/2025 6:02 AM CDT URINALYSIS, MICROSCOPIC ONLY STAT 07/06/2025 5:55 AM CDT URINALYSIS AND REFLEX TO MICROSCOPIC AND CULTURE STAT 07/06/2025 5:55 AM CDT EGFR STAT 07/06/2025 5:46 AM CDT DIFFERENTIAL AUTO STAT 07/06/2025 5:4 6 AM CDT LIPASE STAT 07/06/2025 5:46 AM CDT COMPREHENSIVE METABOLIC PANEL STAT 07/06/2025 5:46 AM CDT CBC WITH AUTO DIFFERENTIAL STAT 07/06/2025 5:46 AM CDT HEPATITIS PANEL, ACUTE Routine 10:00 AM CDT Recent unexplained weight loss from Last 3 Months or Most Recently Relevant to Health Maintenance Results * CT Abdomen Pelvis W Contrast (07/06/2025 8:40 AM CDT) Anatomical Region Laterality Modality Body N/A Computed Tomogra phy 07/06/2025 8:43 AM CDT Narrative 07/06/2025 8:53 AM CDT EXAM DESCRIPTION: CT ABDOMEN PELVIS W CONTRAST REASON FOR STUDY: Abdominal pain, acute, nonlocalized Lower abdominal pain since this morning TECHNIQUE: CT scan of the abdomen and pelvis performed with intravenous and without oral contrast using helical scanning technique with dynamic intravenous contrast injection. Reconstructed coronal and sagittal MPR images reviewed. All images stored on PACS. Automated exposure control was used as a dose optimization technique for this examination. CONTRAST TYPE/DOSE: 75mL of IOVERSOL 350 MG IODINE/ML INTRAVENOUS SYRINGE injected via intravenous COMPARISON: CT abdomen and pelvis 09/09/2021 FINDINGS: LOWER CHEST: No significant pulmonary abnormalities. No effusion. LIVER: Normal size. No identified cystic or solid masses. GALLBLADDER: No stones, wall thickening or pericholecystic fluid BILE DUCTS: No intrahepatic or extrahepatic ductal dilatation. SPLEEN: Normal size. No focal lesions. PANCREAS: No identified cystic or solid masses. No significant calcifications. No adjacent inflammation or peripancreatic fluid collections. Pancreatic duct not dilated. ADRENALS: Normal. KIDNEYS/URINARY TRACT: No identified significant cystic or solid masses. No visualized stones. No hydronephrosis or hydroureter. Symmetric enhancement. Urinary bladder is unremarkable. GI: No dilated bowel loops. No obvious wall thickening. Normal appendix. No significant diverticular disease. PERITONEUM: No ascites or free air. RETROPERITONEUM: No mass or adenopathy. REPRODUCTIVE: No significant abnormality. VASCULATURE: No abdominal aortic aneurysm. MUSCULOSKELETAL: No significant abnormality. OTHER: No other abnormality. IMPRESSION: No acute finding. THIS IS AN ELECTRONICALLY VERIFIED FINAL REPORT 07/06/2025 8:53 AM - Electronically signed by Shabana Nolan M.D. FT: FT Report ID: [id number] Reading Location: [id number] Procedure Note Shabana Hopkins MD - 07/06/2025 EXAM DESCRIPTION: CT ABDOMEN PELVIS W CONTRAST REASON FOR STUDY: Abdominal pain, acute, nonlocalized Lower abdominal pain since this morning TECHNIQUE: CT scan of the abdomen and pelvis performed with intravenousand without oral contrast using helical scanning technique with dynamic intravenous contrast injection. Reconstructed coronal and sagittal MPRimages reviewed. All images stored on PACS. Automated exposure control was usedas a dose optimization technique for this examination. CONTRAST TYPE/DOSE: 75mL of IOVERSOL 350 MG IODINE/ML INTRAVENOUSSYRINGE injected via intravenous COMPARISON: CT abdomen and pelvis 09/09/2021 FINDINGS: LOWER CHEST: No significant pulmonary abnormalities. No effusion. LIVER: Normal size. No identified cystic or solid masses. GALLBLADDER: No stones, wall thickening or pericholecystic fluid BILE DUCTS: No intrahepatic or extrahepatic ductal dilatation. SPLEEN: Normal size. No focal lesions. PANCREAS: No identified cystic or solid masses. No significant calcifications. No adjacent inflammation or peripancreatic fluidcollections. Pancreatic duct not dilated. ADRENALS: Normal. KIDNEYS/URINARY TRACT: No identified significant cystic or solid masses.No visualized stones. No hydronephrosis or hydroureter. Symmetricenhancement. Urinary bladder is unremarkable. GI: No dilated bowel loops. No obvious wall thickening. Normalappendix. No significant diverticular disease. PERITONEUM: No ascites or free air. RETROPERITONEUM: No mass or adenopathy. REPRODUCTIVE: No significant abnormality. VASCULATURE: No abdominal aortic aneurysm. MUSCULOSKELETAL: No significant abnormality. OTHER: No other abnormality. IMPRESSION: No acute finding. THIS IS AN ELECTRONICALLY VERIFIED FINAL REPORT 07/06/2025 8:53 AM - Electronically signed by Shabana Nolan M.D. FT: FT Report ID: [id number] Reading Location: [id number] Pratik Huerta MD IMG CT PROCEDURES F inal Result * US Pelvis W Endovaginal (07/06/2025 8:00 AM CDT) Anatomical Region Laterality Modality Pelvis N/A Ultrasound 07/06/2025 8:13 AM CDT Narrative 07/06/2025 8:16 AM CDT EXAM DESCRIPTION: US PELVIS W ENDOVAGINAL REASON FOR STUDY: Pelvic pain for 1 day. TECHNIQUE: Grayscale ultrasound of the pelvic contents was performed with transabdominal and transvaginal transducer. COMPARISON: 05/21/2023 FINDINGS: UTERUS: The uterus is anteverted. The uterus is homogenous in echotexture and measures 7.7 x 3.8 x 2.9 cm. ENDOMETRIUM: The endometrium measures 0.8 cm in thickness. RIGHT OVARY: The right ovary measures 3.6 x 2.8 x 2.2 cm. There is documentation of color Doppler flow in the right ovary. The right ovary appears unremarkable. LEFT OVARY: The left ovary measures 4.1 x 2.7 x 1.7 cm. There is documentation of color Doppler flow in the left ovary. The left ovary appears unremarkable. PELVIC FLUID: There is no evidence of free fluid in the pelvis. OTHER: No other significant findings. IMPRESSION: No acute abnormality. THIS IS AN ELECTRONICALLY VERIFIED FINAL REPORT 07/06/2025 8:16 AM - Electronically signed by Angelo Jimenez M.D. RB: JALIL Report ID: [id number] Reading Location: [id number] Procedure Note Angelo Jimenez MD - 07/06/2025 EXAM DESCRIPTION: US PELVIS W ENDOVAGINAL REASON FOR STUDY: Pelvic pain for 1 day. TECHNIQUE: Grayscale ultrasound of the pelvic contents was performed with transabdominal and transvaginal transducer. COMPARISON: 05/21/2023 FINDINGS: UTERUS: The uterus is anteverted. The uterus is homogenous inechotexture and measures 7.7 x 3.8 x 2.9 cm. ENDOMETRIUM: The endometrium measures 0.8 cm in thickness. RIGHT OVARY: The right ovary measures 3.6 x 2.8 x 2.2 cm. There is documentation of color Doppler flow in the right ovary. The right ovary appears unremarkable. LEFT OVARY: The left ovary measures 4.1 x 2.7 x 1.7 cm. There is documentation of color Doppler flow in the left ovary. The left ovaryappears unremarkable. PELVIC FLUID: There is no evidence of free fluid in the pelvis. OTHER: No other significant findings. IMPRESSION: No acute abnormality. THIS IS AN ELECTRONICALLY VERIFIED FINAL REPORT 07/06/2025 8:16 AM - Electronically signed by Angelo Jimenez M.D. RB: JALIL Report ID: [id number] Reading Location: [id number] Pratik Huerta MD IMG US PROCEDURES F inal Result * POCT hCG, urine (07/06/2025 6:02 AM CDT) HCG, ur, POC Negative Negative Lot Number [id number] QC Backgroud Clear Acceptable QC Control Line Acceptable Urine 07/06/2025 6:02 AM CDT Pratik Huerta MD POINT OF CARE TEST ORDERABLES Final Result * (ABNORMAL) Urinalysis reflex to microscopic and culture Urine (07/06/2025 5:55 AM CDT) Color, ur Yellow Yellow Clarity, ur Clear Clear [facility] ([place]) Specific gravity, ur 1.032(H) 1.003 - 1.030 [facility] ([place]) pH, urine 6.0 [facility] ([place]) Comment: Interpretive Data U rine pH is affected by diet, medications, systemic acid-base disturbances, and renal tubular function. pH may affect urinary stone formation. For example, urine pH below 6.0 may help reduce the tendency for calcium phosphate stones and pH greater than 6.0 may reduce the tendency for uric acid stone formation. Source: [facility] In*Situ Architecture Current Interpretive Data was last revised on 2017 Protein, ur ql 1+(A) Negative [facility] ([place]) Glucose, ur ql Trace(A) Negative [facility] ([place]) Ketones, ur 3+(A) Negative [facility] ([place]) Bilirubin, ur Negative Negative [facility] ([place]) Blood, ur 2+(A) Negative [facility] ([place]) Urobilinogen, ur <2.0 <2.0 mg/dL [facility] ([place]) Nitrite, ur Negative Negative [facility] ([place]) Leukocyte esterase, ur Negative Negative [facility] ([place]) UA reflex comment Reflex to microscopic UA will be performed. [facility] ([place]) Urine 07/06/2025 5:55 AM CDT 07/06/2025 6:00 AM CDT Pratik Huerta MD LAB MICROBIOLOGY - GENERAL ORDERABLES Final Result [facility]IMA ELISABTE ([place]) 1 [facility] Department [place] [address] * (ABNORMAL) Urinalysis, microscopic only (07/06/2025 5:55 AM CDT) WBC, ur 0-5 0 - 5 /HPF RBC, ur 0-2 0 - 2 /HPF [facility] ([place]) Epithelial cells, squamous, ur 1-5 0 - 5 /HPF [facility] ([place]) Mucous, ur Present(A) [facility] Thomas ([place]) Culture Reflex Comment Reflex conditions for urine culture (WBC >10) not met. MIMA [facility] ([place]) Urine 07/06/2025 5:55 AM CDT 07/06/2025 6:00 AM CDT Omega Hernandez MD LAB URINE ORDERABLES Final Res ult Performing Organization Address [facility] Co de Phone Number MIMA BHANDARI ([place]) 1 [facility] [place] [address] * eGFR (07/06/2025 5:46 AM CDT) eGFR >90 >=60 mL/min/1. 73 m2 Comment: Interpretive Data Reference Interval Normal >/= 90 mL/min/1.73m2 Mildly decreased* 60 - 89 mL/min/1.73m2 Mildly to moderately decreased 45 - 59 mL/min/1.73m2 Moderately to severely decreased 30 - 44 mL/min/1.73m2 Severely decreased 15 - 29 mL/min/1.73m2 Kidney Failure < 15 mL/min/1.73m2 *Relative to young adult level Estimated glomerular filtration rate is determined by the 2020 CKD-EPI equation recommended by the National Kidney Foundation (A Unifying Approach to GFR Estimation: Recommendations of the NKF-ASK Task Force on Reassessing the Inclusion of Race in Diagnosing Kidney Disease, JASN 2020). The CKD-EPI equation should not be used for patients with unstable renal function and has not been validated in children and those over 70. Current interpretive data was last reviewed 2021. Blood 07/06/2025 5:46 AM CDT 07/06/2025 6:49 AM CDT us Omega Hernandez MD LAB BLOOD ORDERABLES Final Res ult Performing Organization Address City/[facility]/ZIP Co de Phone Number MIMA BHANDARI ([place]) 1 [facility] Department [place] [address] * (ABNORMAL) Differential, auto (07/06/2025 5:46 AM CDT) Neutrophil abs 18.40(H) 1.50 - 6.50 K/cumm Imm gran abs 0.13(H) 0.00 - 0.10 K/cumm [facility] ([place]) Lymphocyte abs 2.04 0.80 - 3.30 K/cumm [facility] ([place]) Monocyte abs 1.41(H) 0.20 - 0.80 K/cumm [facility] ([place]) Eosinophil abs 0.12 0.00 - 0.50 K/cumm [facility] ([place]) Basophil abs 0.11(H) 0.00 - 0.10 K/cumm [facility] ([place]) Neutrophil pct 82.9 % [facility] ([place]) Comment: Interpretive Data Percent cell count reference ranges are not reported, since discordance with absolute values may lead to misinterpretation of CBC data. Current Interpretive Data was last revised on 2018. Imm gran pct 0.6 % [facility] ([place]) Comment: Interpretive Data Percent cell count reference ranges are not reported, since discordance with absolute values may lead to misinterpretation of CBC data. Current Interpretive Data was last revised on 2018. Lymphocyte pct 9.2 % [facility] ([place]) Comment: Interpretive Data Percent cell count reference ranges are not reported, since discordance with absolute values may lead to misinterpretation of CBC data. Current Interpretive Data was last revised on 2018. Monocyte pct 6.3 % [facility] ([place]) Comment: Interpretive Data Percent cell count reference ranges are not reported, since discordance with absolute values may lead to misinterpretation of CBC data. Current Interpretive Data was last revised on 2018. Eosinophil pct 0.5 % [facility] ([place]) Comment: Interpretive Data Percent cell count reference ranges are not reported, since discordance with absolute values may lead to misinterpretation of CBC data. Current Interpretive Data was last revised on 2018. Basophil pct 0.5 % [facility] ([place]) Comment: Interpretive Data Percent cell count reference ranges are not reported, since discordance with absolute values may lead to misinterpretation of CBC data. Current Interpretive Data was last revised on 2018. Blood 07/06/2025 5:46 AM CDT 07/06/2025 6:49 AM CDT us Omega Hernandez MD LAB BLOOD ORDERABLES Final Res ult [facility] ([place]) 1 [facility] Department [place] [address] * (ABNORMAL) CBC with auto differential (07/06/2025 5:46 AM CDT) WBC 22.21(H) 3.80 - 9.90 K/cumm Hgb 13.7 11.9 - 15.5 g/dL [facility] ([place]) Hct 39.5 35.6 - 45.5 % [facility] ([place]) Plt 294 150 - 400 K/cumm [facility] ([place]) MPV 10.8 9.1 - 12.3 fL [facility] ([place]) RBC 4.39 3.90 - 5.20 M/cumm [facility] ([place]) MCV 90.0 81.3 - 96.4 fL [facility] ([place]) MCH 31.2 27.1 - 33.3 pg [facility] ([place]) MCHC 34.7 32.3 - 35.7 g/dL [facility] ([place]) RDW CV 12.0 11.1 - 14.9 % [facility] ([place]) RDW SD 39.5 35.7 - 48.1 fL [facility] ([place]) NRBC abs 0.00 0.00 - 0.01 K/cumm [facility] Blood Venous blood specimen / Unknown 07/06/2025 5:46 AM CDT 07/06/2025 6:49 AM CDT us Pratik Huerta MD LAB BLOOD ORDERABLE S Final Result [facility] ([place]) 1 [facility] Department [place] [address] * Lipase (07/06/2025 5:46 AM CDT) Lipase 19 10 - 99 Units/L [facility] ([place]) Blood Venous blood specimen / Unknown 07/06/2025 5:46 AM CDT 07/06/2025 6:49 AM CDT us Pratik Huerta MD LAB BLOOD ORDERABLE S Final Result [facility] ([place]) 1 [facility] Department [place] [address] * (ABNORMAL) Comprehensive metabolic panel (07/06/2025 5:46 AM CDT) Sodium 140 135 - 145 mmol/L [facility] ([place]) Potassium, pl 4.2 3.3 - 4.9 mmol/L [facility] ([place]) Chloride 104 97 - 110 mmol/L [facility] ([place]) CO2 18(L) 22 - 32 mmol/L [facility] ([place]) Anion gap 18(H) 2 - 15 mmol/L [facility] ([place]) BUN 11 6 - 25 mg/dL [facility] ([place]) Creatinine 0.64 0.60 - 1.10 mg/dL [facility] ([place]) Glucose 181 70 - 199 mg/dL [facility] ([place]) Comment: Interpretive Data Fasting glucose >/= 126 mg/dl is diagnostic for diabetes. Fasting is defined as no caloric intake for at least 8 hours. Fasting glucose between 100 mg/dl to 125 mg/dl is diagnostic of prediabetes. In a patient with classic symptoms of hyperglycemia or hyperglycemic crisis, a random glucose >/= 200 mg/dl is diagnostic for diabetes. In the absence of unequivocal hyperglycemia, results should be confirmed by repeat testing. The classification and Diagnosis of Diabetes Diabetes Care 2021; 46: S19-S40. Current interpretive data was last revised 2022. Calcium 10.0 8.5 - 10.3 mg/dL [facility] ([place]) Bilirubin, total 0.3 0.1 - 1.2 mg/dL [facility] ([place]) Protein, pl 7.4 6.5 - 8.5 g/dL [facility] ([place]) Albumin 4.9 3.5 - 5.0 g/dL [facility] ([place]) Alk phos 46 40 - 130 Units/L [facility] ([place]) ALT 21 7 - 45 Units/L [facility] ([place]) AST 22 10 - 45 Units/L [facility] ([place]) Blood 07/06/2025 5:46 AM CDT 07/06/2025 6:49 AM CDT us Pratik Huerta MD LAB BLOOD ORDERABLE S Final Result [facility] ([place]) 1 [facility] Department [place] [address] * Hepatitis panel, acute (01/17/2021 10:00 AM CDT) Hep A IgM Nonreactive Nonreactive [facility] ([place]) Comment: Interpretive Data: If Hep A IgM Ab is reported as Equivocal, a new sample should be drawn in two weeks for testing. Current interpretive data was last revised on 19. Testing performed by: [address] [address] Hep B core IgM Nonreactive Nonreactive [facility] ([place]) Comment: Interpretive Data If HepB Core IgM Ab is reported as Equivocal, a new sample should be drawn in two weeks for testing. Current interpretive data was last revised on 19. Testing performed by: [facility], [address] [place] [address]., [id number] Hep C Ab Nonreactive Nonreactive [facility] ([place]) Comment: Interpretive Data Nonreactive: Antibodies to HCV not detected. Does NOT exclude the possibility of recent exposure to HCV. Equivocal: Equivocal for HCV antibodies. Supplemental molecular testing will be automatically performed to determine infection status in accordance with current CDC screening recommendations. Reactive: Positive for HCV antibodies. This may represent current or past HCV infection. Supplemental molecular testing will be automatically performed to determine current infection status in accordance with current CDC screening recommendations. Interpretive data was last revised on 2019. Testing performed by: [facility], [address] [place] [address]., [id number] HepBsAg Nonreactive Nonreactive [facility] BHANDARI ([place]) Comment:Testing performed by : [facility], [address] [place] [address]., [id number] Blood specimen (specimen) 01/17/2021 10:00 AM CDT 01/17/2021 2:27 PM CDT Buffy Del Valle NP LAB MICROBIOLOGY - GENERAL ORDERABLES Final Result [facility] ELISABET ([place]) 1 [facility] Department [place] [address] from Last 3 Months or Most Recently Relevant to Health Maintenance Insurance [facility] CHO[facility] PLUS [facility] CHOICE PLUS [facility] CHOICE PLUS Care Teams Furnace Loader Relationship Specialty Start Date End Date Yaron Trujillo MD [address] [address] PCP - General Family Medicine 05/09/25
--- OUTSIDE RECORDS SUMMARY | 2025-08-12 14:29 | XMS_ITS | Clinical Summary ---
Author Organization [facility] Address [address] [place] [address] Care Team Providers Care Cooking Instructor Name Role Phone Alfonso Tipton MD Primary Care Provider [phone] [facility]non-owned Affiliates and Associated Physician Practices is amultiple site organization consisting of ambulatory clinics and hospital sitesin [place], [place], [place] and [place]. This disclosure is being madepursuant to the Care Everywhere program and may not contain all information available regarding this patient. Last updated 18.[facility] Allergies No known active allergies Medications * Be aware that medications may not be up to date on this document. Alwaysverify current medications with the patient. Other Lo estrin control. Once daily Active Family History Medical History Relation Name Comments Skin problem Maternal Grandfather Anesthesia Reaction Neg Hx Bleeding Disorders Neg Hx Relation Name Status Comments Maternal Grandfather Social History Tobacco Use Types Packs/Day Years Used Date Smoking Tobacco: Never Assessed Comments No Sex and Gender Information Value Date Recorded Sex Assigned at Not on file Legal Sex Female 8:33 AM CDT Gender Identity Not on file Sexual Orientation Not on file Plan of Treatment Health Maintenance Due Date Last Done Comments HIV SCREENING 2015 HPV VACCINE (1 - 3-dose series) 2015 CHLAMYDIA/GONORRHEA SCREENING 2016 HEPATITIS C SCREENING 08/27/2018 DTAP/TDAP/TD VACCINES (1 - Tdap) 2019 HEPATITIS B VACCINE (1 of 3 - 19+ 3-dose series) 2019 DEPRESSION SCREENING 10/12/2024 COVID-19 VACCINE (1 - 2023-2 5 season) 2025 INFLUENZA VACCINE (#1) 2025 ZOSTER VACCINE (1 of 2) 2050 HIB VACCINE Aged Out No longer eligi ble based on patient's age to complete this topic MENINGOCOCCAL (Group B) VACC INE SHARED DECISION-MAKING Aged Out No longer eligibl e based on patient's age to complete this topic MENINGOCOCCAL GROUPS A/C/Y/W VACCINE Aged Out No longer eligible b ased on patient's age to complete this topic PNEUMOCOCCAL VACCINE Aged Out No long er eligible based on patient's age to complete this topic Insurance [facility] Care Teams Cooking Instructor Relationship Specialty Start Date End Date Alfonso Tipton MD [address] [place] [address] PCP - General Pediatrics 02/15/14
[2025-08-12 14:32] VITALS: BP 138/68; PULSE 112; RESP 18; TEMP 37.2; O2SAT 100
--- NOTE | 2025-08-12 14:50 | ED.URI ---
HPI - URI/Sore Throat General Chief Complaint: Upper Respiratory Infection Stated Complaint: ears/throat/headache patient presents to the [facility] with complaints of sore throat, nasal congestion, headache that began about 2 days ago, today noted significant right ear pain. Noticed yesterday started to get a rash the that started on top of abdomen and is going up toward chest and arms. Denies any itching, burning, or drainage from rash. Denies fever, chills, body aches, dizziness, difficulty swallowing, nausea, vomiting, diarrhea. Related Data Allergies Allergy/AdvReac Type Severity Reaction Status Date / Time No Known Allergies Allergy Unknown Verified 08/12/25 14:43 Review of Systems Constitutional: Constitutional: Reports as per HPI, Denies chills, Reports fatigue, Denies fever(s) and Denies weakness Eyes: Eyes: Reports no additional eye complaints ENT: Reports as per HPI, Denies vertigo, Denies dizziness, Reports nasal congestion and Reports sore throat Comments: Right ear pain Cardiovascular: Cardiovascular: Reports no additional cardiovascular complaints Respiratory: Respiratory: Reports as per HPI, Denies chest congestion, Reports cough, Denies dyspnea and Denies wheezing Gastrointestinal: Gastrointestinal: Reports as per HPI, Denies diarrhea, Denies nausea and Denies vomiting Genitourinary: Genitourinary: Reports no additional female genitourinary complaints Musculoskeletal: Musculoskeletal: Reports as per HPI, Denies back pain and Denies myalgias Integumentary/Breasts: Skin/Breast: Reports as per HPI, Denies pruritus, Denies erythema and Reports rash Neurologic: Reports as per HPI, Denies vertigo, Denies dizziness, Reports headache(s) and Denies weakness Psychiatric: Psychiatric: Reports no additional psychiatric complaints Endocrine: Endocrine: Reports no additional endocrine complaints Hematologic/Lymphatic: Hematologic/Lymphatic: Reports no additional hematologic/lymphatic complaints Allergic/Immunologic: Allergic/Immunologic: Reports no additional allergic/immunologic complaints [facility], [facility] Past Medical History Medical History (Updated 08/12/25 @ 14:51 by Daisy Gong APRN, SPECTROSCOPIST-C) No pertinent past medical history Surgical History Surgical History No pertinent past surgical history Family History Family History Mother Family history non-contributory Social History Social History (Updated 11/11/22 @ 19:43 by Alvarado Worrell, HEAD BAKER, SPECTROSCOPIST) Smoking status: Never smoker Tobacco type: e-cigarettes/vaping Additional smoking assessment comments: 2 YEARS Alcohol intake: current Drinks per week: 2 Alcohol use details: social Substance use: current Substance use type: marijuana Other substance usage details: DAILY Living arrangements: with roommate(s) Additional living arrangements comments: BOYFRIEND Gender identity (if verbalized by the patient): Female Sexual Orientation (if Verbalized by the Patient): Straight or Heterosexual Spiritual care concerns: No Exam Const: General: healthy appearing and no acute distress Nutritional Appearance: well nourished Orientation/consciousness: patient oriented x3 Limitations: no limitations HENMT: Head: normal to inspection Ears: external ears normal and TM's abnormal bilaterally Face/Nose/Sinus: Normal external nose present and Normal nares present Face and sinus: normal facial exam and sinuses nontender Mouth: Yes Normal oral and palatal mucosa present, Yes lip normal and Yes moist mucous membranes Throat: posterior oropharynx abnormal Other: minimal erythema and edema to posterior pharynx, no exudate. Left ear canal and TM normal. right ear canal normal right TM moderate erythema with retraction and clear fluid with loss of bony landmarks Neck: Neck: normal visual inspection and no lymphadenopathy Resp: Effort & Inspection: normal respiratory effort Auscultation: clear to auscultation bilaterally Cardio: Rate: regular rate Rhythm: regular rhythm Skin: General skin exam: normal color Rashes: no rashes Wounds: no wounds Neuro: General: patient oriented x3 Speech: normal speech Gait exam (Neuro): Normal gait present Psych: Mental Status: mental status grossly normal Affect: normal affect Attitude: cooperative Course Course Level of Care: Express Care Visit Vital Signs Vital signs: Vital Signs Temperature 99.0 F 08/12/25 14:32 Pulse Rate 112 H 08/12/25 14:32 Respiratory Rate 18 08/12/25 14:32 Blood Pressure 138/68 08/12/25 14:32 Pulse Oximetry 100 08/12/25 14:32 Oxygen Delivery Room Air 08/12/25 14:32 Temperature 99.0 F 08/12/25 14:32 Pulse Rate 112 H 08/12/25 14:32 Respiratory Rate 18 08/12/25 14:32 Blood Pressure 138/68 08/12/25 14:32 Pulse Oximetry 100 08/12/25 14:32 Oxygen Delivery Room Air 08/12/25 14:32 MDM - URI/Sore Throat MDM Narrative Medical decision making narrative: strep negative, AOM right noted. Will treat with amoxicillin The patient was evaluated by myself in the [facility] care. History is obtained from patient who is an independent historian and physical exam was performed. Available medical records were reviewed at this time. Exam findings show no acute concerns or changes; patient is non-toxic appearing and is in no distress. Patient is appropriate for outpatient treatment and follow-up. I have evaluated and discussed social determinants of health with the patient that could potentially impact subsequent diagnosis and treatment plans. Differential diagnosis and treatment plan were discussed with the patient. Patient agrees with discussion and after shared medical decision making agrees with plan of care. All questions were answered to the patient's satisfaction. Differential Diagnosis Differential diagnosis: Likely upper respiratory infection, croup, otitis media, viral infection, bronchitis, influenza and pharyngitis Medical Records Attestation: I reviewed the patient's medical records. Lab Data Attestation: I reviewed the patient's lab results. Discharge Plan Discharge Clinical Impression: Acute otitis media, right, Pharyngitis Patient Disposition: Home Condition: Stable Instructions: Antibiotic Form, Ear Infection (ED) Additional Instructions: Take the antibiotics until gone. May use probiotics or yogurt daily to help with upset stomach /diarrhea with antibiotic use. May use Tylenol and ibuprofen to help with pain or fever. May use warm compresses to the outside of the ear to help with pain. Can also use Sudafed and Flonase nasal spray to help with symptoms associated with ear infection and help the ears drain. Follow-up with primary care physician if symptoms not improving or worsen. Patient Language: Luxembourger Prescriptions: New amoxicillin 875 mg tablet 875 mg PO Q12H Qty: 20 0RF No Action albuterol sulfate [ProAir HFA] 90 mcg/actuation HFA aerosol inhaler 2 puff INHALATION QID PRN (Reason: shortness of breath or wheezing) Qty: 18 0RF Follow-up/Referrals: Ronnie,Yaron Lozada MD [Primary Care Provider, Unknown] Time of Disposition: 14:52
[2025-08-12 14:55] LABS: EDSTREPNEGPOS1 Negative (Negative)
== END 2025-08-12 14:54 | disposition home or self-care (01) ==
PROVIDERS: Emergency Provider Nurse Practitioner Family; PCP Family Medicine
DX: H66.91 Otitis media, unspecified, right ear (principal); J02.9 Acute pharyngitis, unspecified; F17.290 Nicotine dependence, other tobacco product, uncomplicated; F12.90 Cannabis use, unspecified, uncomplicated
CPT/HCPCS: 87081; 87880; 99213; G0463